=== PATIENT | female | born 1985 | race Caucasian/White ===

== ENCOUNTER 2020-01-04 04:38 | Emergency (ER) | payer OTHER ==
[~2020-01-04] VITALS: Ht 170.2 cm; Wt 72.6 kg
--- NOTE | 2020-01-04 04:42 | NUR ---
Pt BIB [facility] for RUQ abdominal pain that started at 1AM today. Patient is AO x 4, verbally responsive. According to patient, she was diagnosed 1 week [employer] with gallstones by her primary MD who performed an abdominal JAY. Respirations are even and unlabored. Denies chestpain. Does not appear to be in any cardiorespiratory distress. Bowel sounds present in all quadrants. Verbalizes feeling of nausea, but denies vomiting episodes. Last BM was yesterday morning, normal consistency. Last menstrual period was last week. Pt placed in position of comfort in bed. VS taken and monitored. Side rails up x 1. Bed locked in position. Fall and Safety precautions in place.
--- NOTE | 2020-01-04 05:05 | NUR ---
Dr Sanders at bedside for MSE.
[2020-01-04] MEDS ORDERED: ONDANSETRON 4 MG/2 ML VIAL ONE (05:06)
[2020-01-04] MEDS ORDERED: MORPHINE SULFATE 4 MG/1 ML DISP.SYRIN ONE (05:06)
[2020-01-04] MEDS ORDERED: PANTOPRAZOLE SODIUM 40 MG VIAL ONE (05:13)
[2020-01-04] MEDS ORDERED: ONDANSETRON 4 MG/2 ML VIAL IV ONE (05:15)
[2020-01-04] MEDS ORDERED: IV NORMAL SALINE 1000 ML BAG IV ONE (05:15)
[2020-01-04] MEDS ORDERED: MORPHINE SULFATE 4 MG/1 ML DISP.SYRIN IV ONE (05:15)
[2020-01-04] MEDS ORDERED: PANTOPRAZOLE SODIUM 40 MG VIAL IV ONE (05:15)
[2020-01-04 05:21] LABS: BASOPHILS % (AUTO) 0.2 % (0.0-2.0); EOSINOPHILS # (AUTO) 0.1 K/uL (0.0-0.7); EOSINOPHILS % (AUTO) 0.6 % (0.0-7.0); HEMATOCRIT 42.6 % (31.2-41.9); HEMOGLOBIN 14.8 g/dL (10.9-14.3); LYMPHOCYTES # (AUTO) 2.5 K/uL (20.0-40.0); LYMPHOCYTES % (AUTO) 26.7 % (20.5-51.5); MEAN CORPUSCULAR HEMOGLOBIN 31.2 uug (24.7-32.8); MEAN CORPUSCULAR HGB CONC 35 g/dL (32.3-35.6); MEAN CORPUSCULAR VOLUME 89.5 fL (75.5-95.3); MONOCYTES # (AUTO) 0.6 K/uL (2.0-10.0); MONOCYTES % (AUTO) 6.4 % (0.0-11.0); NEUTROPHILS # (AUTO) 6.2 K/uL (1.8-8.9); NEUTROPHILS % (AUTO) 66.1 % (38.5-71.5); PLATELET COUNT (AUTO) 277 K/uL (179-408); RED BLOOD CELL COUNT(AUTO) 4.76 MIL/uL (3.63-4.92); WHITE BLOOD COUNT (AUTO) 9.4 K/uL (3.8-11.8)
[2020-01-04 05:28] LABS: CARBON DIOXIDE 28 mmol/L (21-32); CHLORIDE 102 mmol/L (98-107); GLUCOSE 114 mg/dL (74-106); POTASSIUM 3.9 mmol/L (3.5-5.1); UREA NITROGEN, BLOOD 16 mg/dL (7-18)
[2020-01-04] MEDS ORDERED: HYDROMORPHONE 1 MG/1 ML DISP.SYRIN IV ONE (05:30)
[2020-01-04] MEDS ORDERED: HYDROMORPHONE 1 MG/1 ML DISP.SYRIN ONE (05:32)
[2020-01-04 05:34] LABS: ALANINE AMINOTRANSFERASE 57 U/L (14-59); ALKALINE PHOSPHATASE 60 U/L (50-136); ASPARTATE AMINOTRANSFERASE 27 U/L (15-37); BILIRUBIN,DIRECT 0.1 mg/dL (0.0-0.2); BILIRUBIN,TOTAL 0.4 mg/dL (0.2-1.0); LIPASE 219 U/L (73-393); TOTAL PROTEIN, SERUM 7.6 g/dL (6.4-8.2)
--- NOTE | 2020-01-04 05:42 | NUR ---
Maged neville in ED - 01/04/20 at 0601 by MARGUERITE Pt remains unable to provide a urine sample for HcG test. Fluids provided.
--- NOTE | 2020-01-04 06:40 | NUR ---
Pt cleared for DC by MD. Patient discharged to home in stable condition. Written and verbal after care instructions given. Emphasized importance of taking Narcotics with stool softener to prevetn constipation and take medication as ordered to avoid overdose. Patient verbalizes understanding of instructions. Pt verbalized that she will call her primary physician and inform her that she went to the ER today for pain. IV on R forearm discontinued. Pressure applied and covered with dry dressing. No bleeding noted. Pt is getting ready to leave, waiting for her ride to pick her up.
[2020-01-04 06:43] VITALS: BP 130/89
[2020-01-04] MEDS ORDERED: METRONIDAZOLE 500 MG TABLET ONE (07:01)
--- NOTE | 2020-01-04 07:40 | NUR ---
PATIENT AMBULATED WITH STEADY GATE TO CAR... HER FAMILY CAME TO PICK HER UP. VITAL SIGNS STABLE
== END 2020-01-04 07:41 | disposition home or self-care (01) ==
LOC: ER 04:38
DX: K80.20 Calculus of gallbladder without cholecystitis without obstruction (principal); R03.0 Elevated blood-pressure reading, without diagnosis of hypertension
CPT/HCPCS: 36415; 80048; 80076; 83690; 84702; 85025; 96361; 96374; 96375; 99284; C9113; J1170; J2270; J2405; A4663; J7030